=== PATIENT | male | born 1950 | race Caucasian/White ===

== ENCOUNTER 2017-02-25 17:59 | Inpatient (IN) | payer MEDICARE ==
[~2017-02-25] VITALS: Ht 175.3 cm; Wt 149.1 kg
[~2017-02-25 17:59] MED LIST: ALL220TA PO; ALLO300 PO; ASPI325T PO; ATEN1TAB74 PO; CYCL-36 PO; DICL25 PO; FEXO180 PO; FURO10S PO; GABA300 PO; LEVO100T60 PO; MS C30TA5 PO; POTA-243 PO; PRIN20TA2 PO; REST30CA PO
[2017-02-25 18:06] VITALS: BP 150/96; PULSE 78; RESP 17; TEMP 97.8; O2SAT 98
[2017-02-25] MEDS ORDERED: OXYC-395 PO (18:32)
[2017-02-25] MEDS ORDERED: POTA10TA2 PO (18:32)
[2017-02-25] MEDS ORDERED: ALPR1TAB3 PO (18:32)
[2017-02-25] MEDS ORDERED: COUM5TAB PO (18:32)
[2017-02-25] MEDS ORDERED: FLUT50SP EACH NARE (18:32)
[2017-02-25] MEDS ORDERED: FURO1TAB61 PO (18:32)
[2017-02-25] MEDS ORDERED: TRAZ100T10 PO (18:32)
[2017-02-25] MEDS ORDERED: LEVO.1 PO (18:32)
[2017-02-25] MEDS ORDERED: PANT40TA3 PO (18:32)
[2017-02-25] MEDS ORDERED: DONE10TA7 PO (18:32)
[2017-02-25] MEDS ORDERED: ZOLO25TA PO (18:32)
[2017-02-25] MEDS ORDERED: MORP1TAB26 PO (18:32)
[2017-02-25] MEDS ORDERED: MEMA1TAB2 PO (18:32)
--- NOTE | 2017-02-25 18:46 | PD ---
HPI Chief Complaint: Fall Time Seen by Provider: 18:39 Travel History International Travel<30 days: No Contact w/Intl Traveler<30days: No Traveled to known affect area: No History of Present Illness HPI Patient is a 66-year-old male transferring from [facility] after a mechanical fall this morning that subsequently resulted in fourth through eighth rib fractures. Patient was transferred here due to patient being on anticoagulants and it was felt that he was out of their scope of practice. Patient states that he was wearing his orthopedic shoe this morning which she does not normally wear was trying to get used to when he stepped off the curb tripping and falling onto concrete. Denies any head injury or loss of consciousness. He denied any chest pain or dizziness prior to the fall. PFSH Past Medical History Hx Anticoagulant Therapy: Yes (warfarin) Arthritis: Yes Anxiety: Yes Depression: Yes Heart Rhythm Problems: Yes (ATRIAL FIB) Cardiovascular Problems: Yes Congestive Heart Failure: Yes Dementia: Yes Diminished Hearing: Yes (hearing aids) Gastrointestinal Disorders: Yes Gout: Yes Hypertension: Yes Musculoskeletal: Yes Respiratory: Yes Sleep Apnea: Yes (C PAP) Thyroid Disease: Yes Tetanus Vaccination: < 5 Years Past Surgical History Joint Replacement: Yes (LEFT KNEE) Other Surgery: Yes Social History Alcohol Use: Yes (OCC VODKA) Tobacco Use: No Substance Use: No Allergies-Medications (Allergen,Severity, Reaction): Coded Allergies: codeine (Verified Adverse Reaction, Intermediate, headache, 02/25/17) Reported Meds & Prescriptions Reported Meds & Active Scripts Active Reported Memantine 10 Mg Tab 10 Mg PO DAILY Coumadin (Warfarin) 5 Mg Tab 5 Mg PO HS Alprazolam 1 Mg Tab 1 Mg PO Q6H PRN Potassium Chloride ER (Potassium Chloride) 10 Meq Tab 10 Meq PO DAILY Zoloft (Sertraline HCl) 25 Mg Tab 25 Mg PO DAILY Donepezil 10 Mg Tab 10 Mg PO HS Fluticasone Nasal Chicken 50 Mcg/Act Naspr 50 Mcg EACH NARE HS 50 mcg/spray Lasix (Furosemide) 80 Mg Tab 80 Mg PO BID Synthroid (Levothyroxine Sodium) 100 Mcg Tab 100 Mcg PO DAILY Pantoprazole (Pantoprazole Sodium) 40 Mg Tab 40 Mg PO DAILY Trazodone (Trazodone HCl) 100 Mg Tablet 100 Mg PO HS Morphine ER (Morphine Sulfate) 60 Mg Tab 60 Mg PO BID Oxycodone (Oxycodone HCl) 10 Mg Tab 10 Mg PO Q8HR Review of Systems Except as stated in HPI: all other systems reviewed are Neg General / Constitutional: No: Fever HENT: No: Headaches Cardiovascular: No: Chest Pain or Discomfort Respiratory: Positive: Pleuritic Pain, No: Shortness of Breath Gastrointestinal: No: Nausea, Abdominal Pain Musculoskeletal: Positive: Pain Neurologic: No: Weakness, Dizziness Physical Exam Narrative GENERAL: Obese, well-developed, alert male. Resting comfortably in no acute distress. SKIN: Warm and dry. HEAD: Atraumatic. Normocephalic. EYES: Pupils equal and round. No scleral icterus. No injection or drainage. ENT: No nasal bleeding or discharge. Mucous membranes pink and moist. NECK: Trachea midline. No JVD. CARDIOVASCULAR: Regular rate and rhythm. RESPIRATORY: No accessory muscle use. Clear to auscultation. Breath sounds equal bilaterally. GASTROINTESTINAL: Abdomen soft, non-tender, nondistended. Hepatic and splenic margins not palpable. MUSCULOSKELETAL: Extremities without clubbing, cyanosis, or edema. No obvious deformities. Tenderness to palpation of her left anterior lateral ribs, no crepitus noted, no ecchymosis noted. NEUROLOGICAL: Awake and alert. No obvious cranial nerve deficits. Motor grossly within normal limits. Five out of 5 muscle strength in the arms and legs. Normal speech. PSYCHIATRIC: Appropriate mood and affect; insight and judgment normal. Data Data Last Documented VS Vital Signs Date Time Temp Pulse Resp B/P (MAP) Pulse Ox O2 Delivery O2 Flow Rate FiO2 02/25/17 18:10 80 18 98 Room Air 02/25/17 18:06 97.8 150/96 (114) Orders Orders Morphine Inj (Morphine Inj) (02/25/17 19:00) Ondansetron Inj (Zofran Inj) (02/25/17 19:00) Admit Order (Ed Use Only) (02/25/17 18:58) MDM Medical Decision Making Medical Screen Exam Complete: Yes Emergency Medical Condition: Yes Medical Record Reviewed: Yes Interpretation(s) Vital Signs Date Time Temp Pulse Resp B/P (MAP) Pulse Ox O2 Delivery O2 Flow Rate FiO2 02/25/17 18:06 97.8 78 17 150/96 (114) 98 Differential Diagnosis Rib fracture versus intractable pain versus respiratory compromise versus metabolic abnormality versus other Narrative Course Patient was sent from [facility] to be admitted to trauma service after a mechanical fall resulted in for minimally to nondisplaced rib fractures on the left side from the fourth through eighth ribs. Medical records were reviewed, labs are ordered but there were none resulted are sent with patient. Patient's vital signs are stable. Dr. Higgins notified the patient was in the emergency department. Admit order placed. Basic labs and repeat chest x-ray ordered and pending. Diagnosis Primary Impression: Rib fractures Qualified Codes: S22.42XD - Multiple fractures of ribs, left side, subsequent encounter for fracture with routine healing Additional Impressions: Intractable pain Fall Qualified Codes: W19.XXXD - Unspecified fall, subsequent encounter Admitting Information Admitting Physician Requests: Admit Condition: Stable Lisandra Painting Feb 25, 2017 18:46
[2017-02-25] MEDS ORDERED: ONDANSETRON HCL 4 MG/2 ML VIAL IV PUSH ONE (19:00)
[2017-02-25] MEDS ORDERED: MORPHINE SULFATE 4 MG/ML INJ IV PUSH ONE (19:00)
[2017-02-25 19:05] VITALS: BP 151/86; PULSE 82; RESP 18; O2SAT 99
--- NOTE | 2017-02-25 19:12 | PD ---
Data Data Last Documented VS Vital Signs Date Time Temp Pulse Resp B/P (MAP) Pulse Ox O2 Delivery O2 Flow Rate FiO2 02/25/17 18:10 80 18 98 Room Air 02/25/17 18:06 97.8 150/96 (114) Orders Orders Morphine Inj (Morphine Inj) (02/25/17 19:00) Ondansetron Inj (Zofran Inj) (02/25/17 19:00) Admit Order (Ed Use Only) (02/25/17 18:58) MDM Supervised Visit with AGNIESZKA: Yes Narrative Course The history, exam, and medical decision-making in the associated mid-level provider note were completed with my assistance. I reviewed and agree with the findings presented. I attest that I had a [id number] encounter with the patient on the same day, and personally performed and documented my assessment and findings in the medical record. *My assessment and Findings: "Trauma transfer" for rib fractures. Patient on Coumadin. No labs available. Complaining of some pain now. Otherwise comfortable. No pneumothorax. We'll repeat chest x-ray here. Check labs were discussed with Dr. Higgins. Diagnosis Primary Impression: Rib fractures Qualified Codes: S22.42XD - Multiple fractures of ribs, left side, subsequent encounter for fracture with routine healing Additional Impressions: Intractable pain Fall Qualified Codes: W19.XXXD - Unspecified fall, subsequent encounter Condition: Sami Shultz MD Feb 25, 2017 19:12
--- NOTE | 2017-02-25 20:06 | RADRPT ---
EXAM DATE/TIME: 02/25/2017 19:28 [facility] COMPARISON: No previous studies available for comparison. EXTERNAL COMPARISON : [facility] INDICATIONS : Left sided pain and shortness of breath after fall. MEDICAL HISTORY : None. SURGICAL HISTORY : None. ENCOUNTER: Initial ACUITY: 1 day PAIN SCORE: 10/10 LOCATION: Left chest and posterior ribs. FINDINGS: The heart size is enlarged. The lungs are clear. No effusion is seen. CONCLUSION: Cardiomegaly. Henrique Rodgers MD on February 25, 2017 at 19:57 Board Certified Radiologist. This report was verified electronically.
[2017-02-25 20:29] LABS: AUTOMATED NEUTROPHIL # 7.1 TH/MM3 (1.8-7.7); BASOPHIL % 0.2 % (0.0-2.0); EOSINOPHIL % 0.3 % (0.0-4.0); HEMATOCRIT 41.9 % (39.0-51.0); HEMO FLAGS DIFF FINAL; LYMPH % 9.9 % (9.0-44.0); LYMPHOCYTE # 0.9 TH/MM3 (1.0-4.8); MEAN CELL VOLUME 88.2 FL (80.0-100.0); MEAN CORPUSCULAR HEMOGLOBIN 29.1 PG (27.0-34.0); MONO % 7.9 % (0.0-8.0); NEUT % 81.7 % (16.0-70.0); PLATELET COUNT 178 TH/MM3 (150-450); RED BLOOD COUNT 4.74 MIL/MM3 (4.50-5.90); RED CELL DISTRIBUTION WIDTH 13.8 % (11.6-17.2); WHITE BLOOD COUNT 8.6 TH/MM3 (4.0-11.0)
[2017-02-25 20:33] LABS: APTT (PATIENT) 37.7 SEC (24.3-30.1); INTERNATIONAL NORMALIZED RATIO 2.5 RATIO; PROTHROMBIN TIME - PATIENT 24.8 SEC (9.8-11.6)
[2017-02-25 20:39] LABS: BICARBONATE 29.2 MEQ/L (21.0-32.0); POTASSIUM 4.1 MEQ/L (3.5-5.1)
[2017-02-25] MEDS ORDERED: ACETAMINOPHEN/HYDROcodone 325 MG/5 MG TAB PO PRN ×2 (22:00)
[2017-02-25] MEDS ORDERED: ONDANSETRON HCL 4 MG/2 ML VIAL IV PUSH PRN (22:00)
[2017-02-25] MEDS ORDERED: SODIUM CHLORIDE 0.9% FLUSH 10 ML FLUSH IV FLUSH PRN (22:00)
[2017-02-25] MEDS ORDERED: MAGNESIUM HYDROXIDE SUSP 30 ML CUP PO PRN (22:00)
[2017-02-25] MEDS ORDERED: PANTOPRAZOLE SODIUM 40 MG VIAL IVP SCH (22:00)
[2017-02-25] MEDS ORDERED: ENALAPRILAT 1.25 MG/ML VIAL IV PUSH PRN (22:00)
[2017-02-25] MEDS ORDERED: HYDROmorphone HCL 2 MG TAB PO PRN (22:30)
[2017-02-25 23:09] VITALS: BP 149/70; PULSE 82; RESP 18; O2SAT 98
[2017-02-25] MEDS: MORPHINE SULFATE 2 MG/ML INJ IV PUSH PRN (23:10)
[2017-02-26] VITALS (7 sets, daily range): BP systolic 129–141; BP diastolic 71–89; PULSE 75–97; RESP 18–24; TEMP 97.8–99.5; O2SAT 96–98
[2017-02-26] MEDS: MORPHINE SULFATE 2 MG/ML INJ IV PUSH PRN ×2 (03:32→08:25)
--- NOTE | 2017-02-26 05:13 | MH ---
cc: ZULAY GARDUNO DATE OF ADMISSION: 02/25/2017 DATE OF 1950 DATE OF EVALUATION 02/25/2017 HISTORY This is 66-year-old male who was walking and tripped on a curb, fell onto his left side. He was evaluated by outside hospital, found to have rib fractures and request was made for transfer to [place] for management. The patient complains of left-sided chest pain with pain on inspiration. No abdominal pain. No paresthesias. No headaches. He denies loss of consciousness. PAST MEDICAL HISTORY The patient has a medical history significant for - 1. CHF. 2. Atrial fibrillation. 3. Anxiety. 4. Depression. 5. Hypertension. 6. Obstructive sleep apnea PAST SURGICAL HISTORY Knee surgery. Ankle surgery. SOCIAL HISTORY He drinks alcohol rarely. He does not smoke. ALLERGIES CODEINE. MEDICATIONS Can be obtained from medical records. PHYSICAL EXAMINATION GENERAL: On exam he is laying on the bed in no acute distress. Obese. EYES: His pupils are equal and reactive. NECK: Nontender. LUNGS: Respirations clear. CHEST: He has left-sided chest tenderness. No crepitus. ABDOMEN: Nontender. EXTREMITIES: No deformities. The patient does have a venous stasis changes in his lower extremities. LABORATORY DATA The patient's hemoglobin is 14, hematocrit is 42. Electrolytes within normal limits. ASSESSMENT This is a patient status post fall with multiple rib fractures on anticoagulation. The patient is being admitted. PLAN 1. We will monitor his respiratory status. 2. Repeat chest x-ray in a.m. 3. We will provide pain management. MD PERNELL Gutierrez/SSB /10:12 PM /4:58 AM
[2017-02-26 05:48] LABS: APTT (PATIENT) 39.4 SEC (24.3-30.1)
[2017-02-26 05:57] LABS: AUTOMATED NEUTROPHIL # 6.3 TH/MM3 (1.8-7.7); BASOPHIL % 0.4 % (0.0-2.0); EOSINOPHIL # 0.1 TH/MM3 (0-0.4); EOSINOPHIL % 0.7 % (0.0-4.0); HEMATOCRIT 38.4 % (39.0-51.0); HEMO FLAGS DIFF FINAL; LYMPH % 12.9 % (9.0-44.0); LYMPHOCYTE # 1.1 TH/MM3 (1.0-4.8); MEAN CELL VOLUME 89.1 FL (80.0-100.0); MEAN CORPUSCULAR HEMOGLOBIN 29.4 PG (27.0-34.0); MONO % 10.8 % (0.0-8.0); NEUT % 75.2 % (16.0-70.0); PLATELET COUNT 153 TH/MM3 (150-450); RED BLOOD COUNT 4.31 MIL/MM3 (4.50-5.90); RED CELL DISTRIBUTION WIDTH 13.6 % (11.6-17.2); WHITE BLOOD COUNT 8.3 TH/MM3 (4.0-11.0)
[2017-02-26] MEDS: LEVOTHYROXINE SODIUM 100 MCG TAB PO SCH (06:02)
[2017-02-26 06:08] LABS: ALKALINE PHOSPHATASE 101 U/L (45-117); TOTAL BILIRUBIN ADULT 0.7 MG/DL (0.2-1.0)
[2017-02-26 06:11] LABS: ALT (GPT) 25 U/L (12-78); ANION GAP 6 MEQ/L (5-15); AST (GOT) 27 U/L (15-37); BICARBONATE 26.5 MEQ/L (21.0-32.0); BLOOD UREA NITROGEN 14 MG/DL (7-18); CHLORIDE 107 MEQ/L (98-107); GLOMERULAR FILTRATION RATE 114 ML/MIN (>89); POTASSIUM 4.2 MEQ/L (3.5-5.1); SODIUM (NA) 139 MEQ/L (136-145)
--- NOTE | 2017-02-26 06:49 | RADRPT ---
EXAM DATE/TIME: 02/26/2017 05:43 [facility] COMPARISON: CHEST PA & LAT, February 25, 2017, 19:28. INDICATIONS : Short of breath. MEDICAL HISTORY : None. SURGICAL HISTORY : None. ENCOUNTER: Subsequent ACUITY: 1 day PAIN SCORE: 0/10 LOCATION: Bilateral chest FINDINGS: There is fracturing of the left fifth, sixth and seventh ribs. The heart size is enlarged. The lungs are grossly clear. CONCLUSION: Left fifth, sixth and seventh rib fractures. Henrique Rodgers MD on February 26, 2017 at 6:45 Board Certified Radiologist. This report was verified electronically.
[2017-02-26] MEDS ORDERED: LACTULOSE SYRUP 20 GM/30 ML CUP PO PRN (08:00)
[2017-02-26] MEDS: MEMANTINE HCL 10 MG TAB PO SCH (08:24)
[2017-02-26] MEDS: SERTRALINE HCL 50 MG TAB PO SCH (08:24)
[2017-02-26] MEDS: FUROSEMIDE 80 MG TAB PO SCH ×2 (08:24→20:18)
[2017-02-26] MEDS: DOCUSATE SODIUM 50 MG/SENNA 8.6 MG TAB PO SCH ×2 (08:24→20:18)
[2017-02-26] MEDS: LIDOCAINE HCL 5% PATCH T-DERMAL SCH (08:26)
[2017-02-26] MEDS ORDERED: DOCUSATE SODIUM 100 MG CAP PO SCH (09:00)
[2017-02-26] MEDS: POLYETHYLENE GLYCOL 17 GM PKG PO SCH (09:00)
[2017-02-26] MEDS: METHOCARBAMOL 500 MG TAB PO SCH ×2 (11:00→19:55)
[2017-02-26] MEDS ORDERED: MORPHINE SULFATE 2 MG/ML INJ IV PUSH ONE (12:15)
--- NOTE | 2017-02-26 12:20 | HHI.PR ---
Subjective Subjective Notes Complains of left rib pain Has not been OOB yet Objective Vitals/I&O Vital Signs Date Time Temp Pulse Resp B/P (MAP) Pulse Ox O2 Delivery O2 Flow Rate FiO2 02/26/17 08:30 16 02/26/17 08:04 98.4 86 140/89 (106) 97 02/25/17 23:09 Room Air Labs Laboratory Tests Test 02/25/17 19:57 02/26/17 04:22 White Blood Count 8.6 8.3 Red Blood Count 4.74 4.31 Hemoglobin 13.8 12.6 Hematocrit 41.9 38.4 Mean Corpuscular Volume 88.2 89.1 Mean Corpuscular Hemoglobin 29.1 29.4 Mean Corpuscular Hemoglobin Concent 33.0 33.0 Red Cell Distribution Width 13.8 13.6 Platelet Count 178 153 Mean Platelet Volume 8.6 8.9 Neutrophils (%) (Auto) 81.7 75.2 Lymphocytes (%) (Auto) 9.9 12.9 Monocytes (%) (Auto) 7.9 10.8 Eosinophils (%) (Auto) 0.3 0.7 Basophils (%) (Auto) 0.2 0.4 Neutrophils # (Auto) 7.1 6.3 Lymphocytes # (Auto) 0.9 1.1 Monocytes # (Auto) 0.7 0.9 Eosinophils # (Auto) 0.0 0.1 Basophils # (Auto) 0.0 0.0 CBC Comment DIFF FINAL DIFF FINAL Differential Comment Prothrombin Time 24.8 Prothromb Time International Ratio 2.5 Activated Partial Thromboplast Time 37.7 39.4 Blood Urea Nitrogen 14 14 Creatinine 0.78 0.69 Random Glucose 111 100 Calcium Level 8.6 8.2 Sodium Level 141 139 Potassium Level 4.1 4.2 Chloride Level 103 107 Carbon Dioxide Level 29.2 26.5 Anion Gap 9 6 Estimat Glomerular Filtration Rate 99 114 Total Protein 5.9 Albumin 3.0 Alkaline Phosphatase 101 Aspartate Amino Transf (AST/SGOT) 27 Alanine Aminotransferase (ALT/SGPT) 25 Total Bilirubin 0.7 Radiology Last Impressions Chest X-Ray 02/26/17 0000 Signed Impressions: Service Date/Time: Sunday, February 26, 2017 05:43 - CONCLUSION: Left fifth, sixth and seventh rib fractures. Henrique Rodgers MD Narrative Exam GENERAL: 66-year-old obese male lying in bed in no acute distress. SKIN: Warm and dry. HEAD: Atraumatic. Normocephalic. EYES: PERRL. ENT: No nasal bleeding or discharge. Mucous membranes pink and moist. NECK: Trachea midline. No JVD. CARDIOVASCULAR: Regular rate and rhythm. RESPIRATORY: No accessory muscle use. Lungs clear and diminished to auscultation. Breath sounds equal bilaterally. Left lateral ribs tender to palpation. GASTROINTESTINAL: Abdomen soft, non-tender, nondistended. + BS. MUSCULOSKELETAL: Extremities without cyanosis, or edema. MAEW, + perfused NEUROLOGICAL: Awake and alert. Normal speech. A/P Assessment and Plan [place]: Fall from the standing position. No LOC. On Coumadin for Afib. Transferred from [facility] for Trauma services. INJURIES: LEFT rib fxs (4-7) LEFT pulmonary contusion PMHx: Afib on Coumadin, Arthritis, Anxiety, depression, CHF, dementia, gout, HTN , sleep apnea, thyroid dx Diet: Regular Pulm: IS Pain: Robaxin, Lidoderm patch, Added home dose of Morphine ER, and oxycodone 10mg q4H, IV Ofirmev x 24 hours Activity: OOB. PT ordered GI: PO Protonix Bowel:Isabel-colace, Miralax, PRN Lactulose. LBM 0 DVT: SCDs LEFT rib fxs, LEFT pulmonary contusion Supportive care Pain control Pulmonary toileting OOB-PT and OT ordered CXR today shows no pneumothorax Sleep apnea Continue home CPAP Fall, Afib hx Cardiology consulted, patient sees Dr Jain INR 2.5 on admission Hold Coumadin until INR 1.8 INR in AM US carotids- R/O stenosis Plan of care discussed with patient and RN at bedside. Case management consulted to assist with discharge planning. Juany Boudreaux Feb 26, 2017 12:20
[2017-02-26] MEDS: ACETAMINOPHEN 1000 MG/100 ML 100 ML IV SCH ×2 (13:00→19:56)
[2017-02-26] MEDS: RESP: ALBUTEROL 2.5 MG/IPRATROPIUM 0.5 MG NEB (SCH) NEB ×2 (15:37→20:34)
[2017-02-26] MEDS: DONEPEZIL HCL 5 MG TAB PO SCH (20:17)
[2017-02-26] MEDS: REMOVE OLD LIDOCAINE PATCH T-DERMAL SCH (20:35)
--- NOTE | 2017-02-26 22:34 | RADRPT ---
EXAM DATE/TIME: 02/26/2017 18:27 [facility] COMPARISON: No previous studies available for comparison. INDICATIONS : Status post fall. MEDICAL HISTORY : Dementia. Congestive heart failure. Arthritis. Thyroid disease. Afib. HTN. Sleep apnea. Gout. Depress ion. Anxiety. Anticoagulant therapy, Warfarin. SURGICAL HISTORY : Total knee replacement, left. Left ankle fusion. Blood transfusions. ENCOUNTER: Initial ACUITY: 1 day PAIN SCORE: 3/10 LOCATION: Bilateral neck PEAK SYSTOLIC VELOCITIES (cm/sec): ICA/CCA RATIO: Right: 1.0 Left: 0.7 ICA: Right: 77.0 Left: 56.8 CCA: Right: 78.6 Left: 80.6 ECA: Right: 94.3 Left: 96.8 VERTEBRAL: Right: 45.2 antegrade Left: 47.1 antegrade Elevated flow velocities and ICA/CCA ratios have been found to correlate with increased degrees of vessel stenosis, calculated as percentage of diameter relative to a normal segment of distal ICA/CCA FINDINGS: RIGHT CAROTID: No significant stenosis is visualized. The waveforms are within normal limits. LEFT CAROTID: No significant stenosis is visualized. The waveforms are within normal limits. VERTEBRAL ARTERIES: Antegrade flow is seen in both vertebral arteries. CONCLUSION: Normal hemodynamic profile both carotids. Daniel Sen MD on February 26, 2017 at 22:31 Board Certified Radiologist. This report was verified electronically.
[2017-02-27] VITALS: BP 121/68; PULSE 84; RESP 24; TEMP 98; O2SAT 95
[2017-02-27] MEDS: METHOCARBAMOL 500 MG TAB PO SCH ×3 (01:50→22:31)
[2017-02-27] MEDS: ACETAMINOPHEN 1000 MG/100 ML 100 ML IV SCH ×2 (01:51→06:26)
[2017-02-27 04:00] VITALS: BP 142/92; PULSE 64; RESP 22; TEMP 98; O2SAT 96
[2017-02-27 04:42] LABS: BASOPHIL % 0.2 % (0.0-2.0); EOSINOPHIL % 0.2 % (0.0-4.0); HEMATOCRIT 37.5 % (39.0-51.0); HEMO FLAGS DIFF FINAL; LYMPH % 12.5 % (9.0-44.0); LYMPHOCYTE # 1.1 TH/MM3 (1.0-4.8); MEAN CELL VOLUME 87.5 FL (80.0-100.0); MEAN CORPUSCULAR HEMOGLOBIN 29.6 PG (27.0-34.0); MEAN CORPUSCULAR HGB CONC 33.8 % (32.0-36.0); MONO % 11.6 % (0.0-8.0); NEUT % 75.5 % (16.0-70.0); PLATELET COUNT 163 TH/MM3 (150-450); RED BLOOD COUNT 4.29 MIL/MM3 (4.50-5.90); RED CELL DISTRIBUTION WIDTH 13.9 % (11.6-17.2); WHITE BLOOD COUNT 9.2 TH/MM3 (4.0-11.0)
[2017-02-27 04:53] LABS: PROTHROMBIN TIME - PATIENT 20.5 SEC (9.8-11.6)
[2017-02-27 05:11] LABS: BICARBONATE 30.2 MEQ/L (21.0-32.0); POTASSIUM 3.5 MEQ/L (3.5-5.1)
[2017-02-27] MEDS: LEVOTHYROXINE SODIUM 100 MCG TAB PO SCH (06:25)
[2017-02-27 08:00] VITALS: BP 109/59; PULSE 71; RESP 18; TEMP 97.6; O2SAT 95
[2017-02-27] MEDS: RESP: ALBUTEROL 2.5 MG/IPRATROPIUM 0.5 MG NEB (SCH) NEB ×4 (08:29→19:35)
--- NOTE | 2017-02-27 09:53 | MB ---
cc: MAUREEN PEREZ MD DATE OF CONSULTATION 02/27/2017 HISTORY OF PRESENT ILLNESS This is a 66-year-old gentleman who had a fall with fracture of his fourth through eighth ribs on his left side. We have been asked to see him in that he does have a history of atrial fibrillation. No syncope or chest pain has been present. He has had no palpitations, lightheadedness or dizziness and otherwise has felt well. He was transferred here apparently to initiate pain management. No shortness of breath or angina has been present. He does obviously have significant pain on inspiration. MEDICATIONS AT HOME 1. Warfarin 5 mg daily. 2. Pantoprazole 40 mg daily. 3. Levothyroxine 100 mcg daily. 4. Lasix 80 mg twice daily. 5. Benazepril 10 daily. 6. Zoloft 25 daily. 7. Potassium 10 mEq daily. 8. Alprazolam on a p.r.n. basis. ALLERGIES CODEINE which gives him headaches. PHYSICAL EXAMINATION GENERAL: On physical exam he is awake and alert. He is in no acute distress. VITAL SIGNS: His blood pressures is 140/92, pulse is 70-80 and irregular. There is no neck vein distension. NECK: Carotids are normal. LUNGS: Clear. CARDIOVASCULAR: Exam reveals an irregularly irregular rhythm. There is no significant murmur or gallop noted. ABDOMEN: Soft. There is no tenderness or organomegaly. ASSESSMENT AND PLAN The patient is stable from a cardiovascular standpoint. If surgery is not planned and does not appear to be, he should continue his warfarin for thromboembolic protection. I have reordered this. At this point in time he is stable from a cardiovascular standpoint and we will be happy to see him back as needed. Otherwise we will see on a p.r.n. basis. Please call if necessary. MD EDILIA Guillen/[place] /7:29 AM /9:43 AM
[2017-02-27] MEDS: DOCUSATE SODIUM 50 MG/SENNA 8.6 MG TAB PO SCH ×2 (10:30→20:14)
[2017-02-27] MEDS: FUROSEMIDE 80 MG TAB PO SCH ×2 (10:30→20:11)
[2017-02-27] MEDS: SERTRALINE HCL 50 MG TAB PO SCH (10:30)
[2017-02-27] MEDS: POLYETHYLENE GLYCOL 17 GM PKG PO SCH (10:31)
[2017-02-27] MEDS: MEMANTINE HCL 10 MG TAB PO SCH (10:31)
[2017-02-27] MEDS: LIDOCAINE HCL 5% PATCH T-DERMAL SCH (10:31)
[2017-02-27 11:48] VITALS: BP 136/81; PULSE 90; RESP 18; TEMP 99.1; O2SAT 97
--- NOTE | 2017-02-27 12:46 | HHI.PR ---
Subjective Subjective Notes Complains of left shoulder pain Got OOB yesterday with PT Objective Vitals/I&O Vital Signs Date Time Temp Pulse Resp B/P (MAP) Pulse Ox O2 Delivery O2 Flow Rate FiO2 02/27/17 11:48 99.1 90 18 136/81 (99) 97 02/25/17 23:09 Room Air Labs Laboratory Tests Test 02/27/17 03:53 White Blood Count 9.2 Red Blood Count 4.29 Hemoglobin 12.7 Hematocrit 37.5 Mean Corpuscular Volume 87.5 Mean Corpuscular Hemoglobin 29.6 Mean Corpuscular Hemoglobin Concent 33.8 Red Cell Distribution Width 13.9 Platelet Count 163 Mean Platelet Volume 8.7 Neutrophils (%) (Auto) 75.5 Lymphocytes (%) (Auto) 12.5 Monocytes (%) (Auto) 11.6 Eosinophils (%) (Auto) 0.2 Basophils (%) (Auto) 0.2 Neutrophils # (Auto) 7.0 Lymphocytes # (Auto) 1.1 Monocytes # (Auto) 1.1 Eosinophils # (Auto) 0.0 Basophils # (Auto) 0.0 CBC Comment DIFF FINAL Differential Comment Prothrombin Time 20.5 Prothromb Time International Ratio 2.0 Blood Urea Nitrogen 11 Creatinine 0.78 Random Glucose 103 Calcium Level 7.6 Sodium Level 140 Potassium Level 3.5 Chloride Level 103 Carbon Dioxide Level 30.2 Anion Gap 7 Estimat Glomerular Filtration Rate 99 Radiology Last Impressions Chest X-Ray 02/26/17 0000 Signed Impressions: Service Date/Time: Sunday, February 26, 2017 05:43 - CONCLUSION: Left fifth, sixth and seventh rib fractures. Henrique Rodgers MD Narrative Exam GENERAL: 66-year-old obese male lying in bed in no acute distress. SKIN: Warm and dry. HEAD: Normocephalic. CARDIOVASCULAR: Regular rate and rhythm. RESPIRATORY: No accessory muscle use. Lungs clear and diminished to auscultation. Breath sounds equal bilaterally. GASTROINTESTINAL: Abdomen soft, non-tender, nondistended. + BS. MUSCULOSKELETAL: Extremities without cyanosis, or edema. MAEW, + perfused. Limited ROM LUE. NEUROLOGICAL: Awake and alert. Normal speech. A/P Assessment and Plan [place]: Fall from the standing position. No LOC. On Coumadin for Afib. Transferred from [facility] for Trauma services. INJURIES: LEFT rib fxs (4-7) LEFT pulmonary contusion PMHx: Afib on Coumadin, Arthritis, Anxiety, depression, CHF, dementia, gout, HTN , sleep apnea, thyroid dx Diet: Regular Pulm: IS Pain: Lidoderm patch, Morphine ER, oxycodone, added Fentanyl patch and increased Robaxin dose Activity: OOB. PT ordered GI: PO Protonix Bowel:Isabel-colace, Miralax, PRN Lactulose. LBM 0 DVT: SCDs LEFT rib fxs, LEFT pulmonary contusion Supportive care Pain control Pulmonary toileting OOB-PT and OT ordered CXR in AM Sleep apnea Continue home CPAP Fall, Afib hx Cardiology consulted, patient sees Dr Jain Resumed home Coumadin dose INR 2.5 on admission INR in AM US carotids- negative for stenosis LEFT shoulder pain Xray- R/O fx Plan of care discussed with patient and RN at bedside. Case management consulted to assist with discharge planning. Plan DC in 1-2 days when pain better controlled. Juany Boudreaux Feb 27, 2017 12:46
[2017-02-27] MEDS ORDERED: METHOCARBAMOL 500 MG TAB PO SCH (14:00)
[2017-02-27] MEDS ORDERED: PILL SPLITTER OTHER PRN (15:00)
[2017-02-27] MEDS ORDERED: fentaNYL 50 MCG/HR PATCH T-DERMAL SCH (15:00)
[2017-02-27] MEDS ORDERED: REMOVE OLD DURAGESIC (FENTANYL) PATCH T-DERMAL SCH (15:00)
[2017-02-27] MEDS: WARFARIN SOD 5 MG TAB PO SCH (15:03)
[2017-02-27] MEDS: MORPHINE SULFATE 60 MG CONTROLLED RELEASE TAB PO SCH ×2 (15:10→20:14)
--- NOTE | 2017-02-27 15:53 | RADRPT ---
EXAM DATE/TIME: 02/27/2017 15:40 [facility] COMPARISON: No previous studies available for comparison. INDICATIONS : Left shoulder pain after fall. MEDICAL HISTORY : None. SURGICAL HISTORY : None. ENCOUNTER: Initial ACUITY: 2 days PAIN SCORE: 10/10 LOCATION: Left shoulder. FINDINGS: Two view examination of the left shoulder demonstrates no evidence of fracture or dislocation. There are fractures of the left sixth and seventh ribs. No visible pneumothorax. There is hypertrophy of t he acromioclavicular joint, chronic. The glenohumeral and acromioclavicular joints are maintained. B virginie mineralization is normal. CONCLUSION: Unremarkable limited examination of the left shoulder however there are least 2 left-sided rib fractu res. Sami Mohan MD on February 27, 2017 at 15:50 Board Certified Radiologist. This report was verified electronically.
[2017-02-27 16:00] VITALS: BP 139/90; PULSE 98; RESP 18; TEMP 99.3; O2SAT 96
[2017-02-27] MEDS: MORPHINE SULFATE 2 MG/ML INJ IV PRN (17:29)
[2017-02-27 20:00] VITALS: BP 147/90; PULSE 99; RESP 24; TEMP 99.3; O2SAT 95
[2017-02-27] MEDS: REMOVE OLD LIDOCAINE PATCH T-DERMAL SCH (20:12)
[2017-02-27] MEDS: traZODone HCL 100 MG TAB PO SCH (20:12)
[2017-02-27] MEDS: DONEPEZIL HCL 5 MG TAB PO SCH (20:13)
[2017-02-27] MEDS ORDERED: MAGN30S PO (20:14)
[2017-02-27] MEDS ORDERED: PERI PO (20:14)
[2017-02-27] MEDS: LACTULOSE SYRUP 20 GM/30 ML CUP PO SCH (20:30)
[2017-02-27] MEDS ORDERED: NON-FORMULARY DRUG (Trazodone 100 MG) PO SCH (21:00)
[2017-02-27] MEDS: MAGNESIUM HYDROXIDE SUSP 30 ML CUP PO SCH (21:00)
[2017-02-28] VITALS (7 sets, daily range): BP systolic 104–154; BP diastolic 79–94; PULSE 88–132; RESP 17–24; TEMP 98.3–101.8; O2SAT 90–95
[2017-02-28] MEDS: MORPHINE SULFATE 2 MG/ML INJ IV PRN ×4 (01:31→21:03)
[2017-02-28 05:55] LABS: INTERNATIONAL NORMALIZED RATIO 1.5 RATIO; PROTHROMBIN TIME - PATIENT 15.1 SEC (9.8-11.6)
--- NOTE | 2017-02-28 06:02 | RADRPT ---
EXAM DATE/TIME: 02/28/2017 05:04 [facility] COMPARISON: CHEST SINGLE AP, February 26, 2017, 5:43. INDICATIONS : Shortness of breath. MEDICAL HISTORY : None. SURGICAL HISTORY : None. ENCOUNTER: Subsequent ACUITY: 4 - 6 days PAIN SCORE: Non-responsive. LOCATION: Bilateral chest FINDINGS: The heart size is enlarged. The lungs are grossly clear. Left rib fractures are seen. CONCLUSION: Left rib fractures. Henrique Rodgers MD on February 28, 2017 at 6:00 Board Certified Radiologist. This report was verified electronically.
[2017-02-28 06:09] LABS: BICARBONATE 31.3 MEQ/L (21.0-32.0); POTASSIUM 3.7 MEQ/L (3.5-5.1)
--- NOTE | 2017-02-28 06:32 | HHI.FF ---
Face to Face Verification Diagnosis: (1) Rib fractures (2) Fall (3) Intractable pain Physical Therapy Order: Evaluate and Treat, Improve ambulation, Strength and gait training Home Health Nursing Order: Medical education Signs/symptoms of disease process Medication education-adverse effect Nursing assessment with vital signs I have seen patient Ryder Snyder on 02/28/17. My clinical findings support the need for the requested home health care services because: Ltd mobility - disease progression Deconditioned w/ increased weakness Limited ability to care for self High risk of falls I certify that my clinical findings support that this patient is homebound because: Post-op weakness Unsteady gait/balance Unsafe to leave home unassisted [id number] bed/chair Unable to use public transportation Josephine Menjivar Feb 28, 2017 06:32
[2017-02-28] MEDS: LEVOTHYROXINE SODIUM 100 MCG TAB PO SCH (06:57)
[2017-02-28] MEDS: METHOCARBAMOL 500 MG TAB PO SCH ×3 (06:57→21:02)
[2017-02-28] MEDS: RESP: ALBUTEROL 2.5 MG/IPRATROPIUM 0.5 MG NEB (SCH) NEB ×4 (07:40→20:00)
[2017-02-28] MEDS: MORPHINE SULFATE 60 MG CONTROLLED RELEASE TAB PO SCH ×2 (08:58→19:48)
[2017-02-28] MEDS: POTASSIUM CHLORIDE 10 MEQ CONTROLLED RELEASE TAB PO SCH (08:59)
[2017-02-28] MEDS: FUROSEMIDE 80 MG TAB PO SCH ×2 (09:00→19:49)
[2017-02-28] MEDS: POLYETHYLENE GLYCOL 17 GM PKG PO SCH ×2 (09:00→11:31)
[2017-02-28] MEDS: MEMANTINE HCL 10 MG TAB PO SCH (09:00)
[2017-02-28] MEDS: DOCUSATE SODIUM 50 MG/SENNA 8.6 MG TAB PO SCH ×2 (09:00→19:47)
[2017-02-28] MEDS: LACTULOSE SYRUP 20 GM/30 ML CUP PO SCH (09:01)
[2017-02-28] MEDS: SERTRALINE HCL 50 MG TAB PO SCH (09:01)
[2017-02-28] MEDS: MAGNESIUM HYDROXIDE SUSP 30 ML CUP PO SCH ×2 (09:02→19:49)
[2017-02-28] MEDS: LIDOCAINE HCL 5% PATCH T-DERMAL SCH (09:02)
--- NOTE | 2017-02-28 12:48 | HHI.PR ---
Subjective Subjective Notes PTD: 3 Pt lying in bed. Eyes closed. Moaning and grimacing/groaning through gritted teeth. Patient states his pain is 15/10. "It's up there." "I have broken ribs. It's so bad." "My is in a wheelchair." Objective Vitals/I&O Vital Signs Date Time Temp Pulse Resp B/P (MAP) Pulse Ox O2 Delivery O2 Flow Rate FiO2 02/28/17 12:00 99.6 132 17 142/87 (105) 93 02/25/17 23:09 Room Air Labs Laboratory Tests Test 02/28/17 05:24 Prothrombin Time 15.1 Prothromb Time International Ratio 1.5 Blood Urea Nitrogen 15 Creatinine 0.76 Random Glucose 107 Calcium Level 8.0 Sodium Level 139 Potassium Level 3.7 Chloride Level 103 Carbon Dioxide Level 31.3 Anion Gap 5 Estimat Glomerular Filtration Rate 102 Radiology Last 72 hours Impressions Chest X-Ray 02/28/17 0600 Signed Impressions: Service Date/Time: Tuesday, February 28, 2017 05:04 - CONCLUSION: Left rib fractures. Henrique Rodgers MD Shoulder X-Ray 02/27/17 0000 Signed Impressions: Service Date/Time: Monday, February 27, 2017 15:40 - CONCLUSION: Unremarkable limited examination of the left shoulder however there are least 2 left-sided rib fractures. Sami Mohan MD Chest X-Ray 02/26/17 0000 Signed Impressions: Service Date/Time: Sunday, February 26, 2017 05:43 - CONCLUSION: Left fifth, sixth and seventh rib fractures. Henrique Rodgers MD Carotid Artery Ultrasound 02/26/17 0000 Signed Impressions: Service Date/Time: Sunday, February 26, 2017 18:27 - CONCLUSION: Normal hemodynamic profile both carotids. Daniel Sen MD Narrative Exam GENERAL: This is a 66-year-old male lying in bed. Extremely painful. Moaning. SKIN: Warm and dry. HEAD: Atraumatic. Normocephalic. EYES: PERRLA ENT: No nasal bleeding or discharge. Mucous membranes pink and moist. NECK: Trachea midline. No JVD. CARDIOVASCULAR: Regular rate and rhythm. RESPIRATORY: No accessory muscle use. Lungs are clear to auscultation. Breath sounds equal bilaterally. No distress or dyspnea. GASTROINTESTINAL: BS + x 4 quads. Abdomen obese, soft, non-tender, nondistended. MUSCULOSKELETAL: Extremities without cyanosis, or edema. + peripheral pulses x 4 extremities. Warm with good capillary refill and sensation. MAEW. NEUROLOGICAL: Awake and alert. Normal speech and pattern. A/P Problem List: (1) Rib fractures ICD Codes: S22.39XA - Fracture of one rib, unspecified side, initial encounter for closed fracture Status: Acute (2) Fall ICD Codes: W19.XXXA - Unspecified fall, initial encounter Status: Acute (3) Intractable pain ICD Codes: R52 - Pain, unspecified Status: Acute Assessment and Plan [place]: This is a 66-year-old female who sustained a fall. He fell from the standing position, while wearing new orthopedic shoes. No LOC. He is on Coumadin for A. fib. Transfer from [facility] for trauma services. INJURIES: LEFT rib fxs (4-7) LEFT pulmonary contusion PMHx: Chronic pain. Afib on Coumadin, Arthritis, Anxiety, depression, CHF, dementia, gout, HTN, sleep apnea, thyroid dx Procedures: Consults: Cardiology. Case management. Diet: Regular heart healthy diet. Tolerating po diet. Encourage good po intake with each meal. Pulmonary: Encourage good pulmonary toileting. IS and acapella at bedside and pt encouraged to use. Rationale for use explained to patient, and verbalized understanding. EZ pap w/ nebs. A.m. chest x-ray is stable. F/u labs and CXR in am. PAIN Management: Morphine ER 60mg (home med), Oxycodone 10mg q 4h (home med), Robaxin 750mg q 8h, Lidoderm patch, PRN IV Morphine, Fentanyl patch increased to 75mcg . Added OFIRMEV q 6h for 24 hrs. Added Toradol 15 mg q 6 h for pain control. Pt very difficult to manage as he has chronic pain and is on narcotics daily at home. Anxiety: Resumed home dose of Xanax 1 mg q 8h. Activity: OOB. PT ordered. GI prophylaxis: Protonix po Bowel regimen: Isabel-colace, MOM. Miralax. Lactulose. LBM: 0 DVT prophylaxis: Mechanical VTE with SCDs. Chemical management with Coumadin 5 mg QD. DC Planning: Case management consulted for assistance with final discharge disposition. PT recommends [facility]. [id number] completed. Patient will be able to discharge once pain is more controlled, plan for 1-2 days. Emotional support provided to patient and family at bedside and plan of care discussed. Discussed with RN at bedside. Discussed pt condition and plan of care with collaborating trauma surgeon. Patient is hemodynamically stable and being managed on the med/surg floor. The trauma team will round each day, and evaluate plan of care on a daily basis. LEFT rib fxs LEFT pulmonary contusion Supportive care O2 as needed Pain control - increased fentanyl patch Aggressive pulmonary toileting OOB PT and OT ordered CXR is stable F/u labs in the am Sleep apnea Continue home CPAP Fall, Afib hx Cardiology consulted, patient sees Dr Jain Resumed home Coumadin dose INR 2.5 on admission INR = 1.5 US carotids- negative for stenosis HR elevated - 130 - Afib - chronic, however patient just received albuterol treatment. Lopressor 25 mg q 8h for rate control. Pt is in chronic Afib, most likely elevated from pain and albuterol use. Monitor closely Home medications resumed LEFT shoulder pain Xray- negative for fracture Problem Qualifiers (1) Rib fractures: Qualified Codes: S22.42XD - Multiple fractures of ribs, left side, subsequent encounter for fracture with routine healing (2) Fall: Qualified Codes: W19.XXXD - Unspecified fall, subsequent encounter Josephine Menjivar Feb 28, 2017 12:48
[2017-02-28] MEDS ORDERED: METOPROLOL TARTRATE 25 MG TAB PO ONE (14:00)
[2017-02-28] MEDS ORDERED: REMOVE OLD DURAGESIC (FENTANYL) PATCH T-DERMAL SCH (14:59)
[2017-02-28] MEDS ORDERED: fentaNYL 75 MCG/HR PATCH T-DERMAL SCH (15:00)
[2017-02-28] MEDS: WARFARIN SOD 5 MG TAB PO SCH (16:06)
[2017-02-28] MEDS ORDERED: ALPRAZolam 1 MG TAB PO PRN (17:15)
[2017-02-28] MEDS: KETOROLAC TROMETHAMINE 30 MG/ML (IVP) VIAL IV PUSH SCH ×2 (18:12→23:39)
[2017-02-28] MEDS: ACETAMINOPHEN 1000 MG/100 ML 100 ML IV SCH ×2 (18:13→23:39)
[2017-02-28] MEDS: traZODone HCL 100 MG TAB PO SCH (19:47)
[2017-02-28] MEDS: DONEPEZIL HCL 5 MG TAB PO SCH (19:48)
[2017-02-28] MEDS: REMOVE OLD LIDOCAINE PATCH T-DERMAL SCH (19:49)
[2017-02-28] MEDS: METOPROLOL TARTRATE 25 MG TAB PO SCH (21:02)
[2017-03-01] VITALS (7 sets, daily range): BP systolic 96–120; BP diastolic 67–81; PULSE 45–86; RESP 16–22; TEMP 96.2–98.9; O2SAT 91–95
[2017-03-01] MEDS: KETOROLAC TROMETHAMINE 30 MG/ML (IVP) VIAL IV PUSH SCH ×3 (04:53→17:06)
[2017-03-01] MEDS: MORPHINE SULFATE 2 MG/ML INJ IV PRN (04:53)
[2017-03-01] MEDS: ACETAMINOPHEN 1000 MG/100 ML 100 ML IV SCH ×2 (04:53→11:32)
[2017-03-01] MEDS: LEVOTHYROXINE SODIUM 100 MCG TAB PO SCH (04:54)
[2017-03-01] MEDS: METOPROLOL TARTRATE 25 MG TAB PO SCH ×3 (04:54→21:40)
[2017-03-01] MEDS: METHOCARBAMOL 500 MG TAB PO SCH ×3 (04:54→21:39)
[2017-03-01 04:59] LABS: AUTOMATED NEUTROPHIL # 8.1 TH/MM3 (1.8-7.7); BASOPHIL % 0.3 % (0.0-2.0); EOSINOPHIL # 0.1 TH/MM3 (0-0.4); HEMATOCRIT 38.5 % (39.0-51.0); HEMO FLAGS DIFF FINAL; LYMPH % 12.5 % (9.0-44.0); LYMPHOCYTE # 1.4 TH/MM3 (1.0-4.8); MEAN CELL VOLUME 88.7 FL (80.0-100.0); MEAN CORPUSCULAR HEMOGLOBIN 29.8 PG (27.0-34.0); MEAN CORPUSCULAR HGB CONC 33.6 % (32.0-36.0); MONO % 14.6 % (0.0-8.0); NEUT % 71.6 % (16.0-70.0); PLATELET COUNT 185 TH/MM3 (150-450); RED BLOOD COUNT 4.34 MIL/MM3 (4.50-5.90); RED CELL DISTRIBUTION WIDTH 13.8 % (11.6-17.2); WHITE BLOOD COUNT 11.3 TH/MM3 (4.0-11.0)
[2017-03-01 05:23] LABS: ANION GAP 5 MEQ/L (5-15); AST (GOT) 21 U/L (15-37); BICARBONATE 30.9 MEQ/L (21.0-32.0); BLOOD UREA NITROGEN 19 MG/DL (7-18); CHLORIDE 100 MEQ/L (98-107); GLOMERULAR FILTRATION RATE 87 ML/MIN (>89); SODIUM (NA) 136 MEQ/L (136-145)
[2017-03-01 05:28] LABS: ALKALINE PHOSPHATASE 96 U/L (45-117); ALT (GPT) 19 U/L (12-78); TOTAL BILIRUBIN ADULT 1.3 MG/DL (0.2-1.0)
--- NOTE | 2017-03-01 06:41 | RADRPT ---
EXAM DATE/TIME: 03/01/2017 05:59 [facility] COMPARISON: CHEST SINGLE AP, February 28, 2017, 5:04. INDICATIONS : Chest pain. Rib fractures. MEDICAL HISTORY : Congestive heart failure. Arthritis. Thyroid disease. Afib. HTN. SURGICAL HISTORY : None. ENCOUNTER: Subsequent ACUITY: 4 - 6 days PAIN SCORE: 8/10 LOCATION: Bilateral chest FINDINGS: The heart size is enlarged. There is hazy density seen throughout the left chest. The right lung appe ars fairly clear. Left rib fractures are present. CONCLUSION: Hazy density seen over the left chest likely from effusion. Henrique Rodgers MD on March 01, 2017 at 6:37 Board Certified Radiologist. This report was verified electronically.
[2017-03-01] MEDS: RESP: ALBUTEROL 2.5 MG/IPRATROPIUM 0.5 MG NEB (SCH) NEB ×4 (08:45→20:08)
[2017-03-01] MEDS: MAGNESIUM HYDROXIDE SUSP 30 ML CUP PO SCH ×2 (09:14→21:00)
[2017-03-01] MEDS: POLYETHYLENE GLYCOL 17 GM PKG PO SCH (09:14)
[2017-03-01] MEDS: DOCUSATE SODIUM 50 MG/SENNA 8.6 MG TAB PO SCH ×2 (09:15→21:00)
[2017-03-01] MEDS: FUROSEMIDE 80 MG TAB PO SCH ×2 (09:15→21:00)
[2017-03-01] MEDS: LACTULOSE SYRUP 20 GM/30 ML CUP PO SCH (09:15)
[2017-03-01] MEDS: SERTRALINE HCL 50 MG TAB PO SCH (09:15)
[2017-03-01] MEDS: MORPHINE SULFATE 60 MG CONTROLLED RELEASE TAB PO SCH ×2 (09:16→21:40)
[2017-03-01] MEDS: MEMANTINE HCL 10 MG TAB PO SCH (09:16)
[2017-03-01] MEDS: POTASSIUM CHLORIDE 10 MEQ CONTROLLED RELEASE TAB PO SCH (09:17)
[2017-03-01] MEDS: LIDOCAINE HCL 5% PATCH T-DERMAL SCH (09:18)
--- NOTE | 2017-03-01 09:52 | HHI.PR ---
Subjective Subjective Notes PTD: 4 Patient OOB and sitting in a chair. Patient states, "I'm having a world of problems with my left chest." "I know there are some kooky people out there who say they are on a lot of medication, but I am. I have chronic pain." Objective Vitals/I&O Vital Signs Date Time Temp Pulse Resp B/P (MAP) Pulse Ox O2 Delivery O2 Flow Rate FiO2 03/01/17 08:46 94 21 03/01/17 08:00 96.2 77 16 96/67 (77) 02/25/17 23:09 Room Air Labs Laboratory Tests Test 03/01/17 04:33 White Blood Count 11.3 Red Blood Count 4.34 Hemoglobin 13.0 Hematocrit 38.5 Mean Corpuscular Volume 88.7 Mean Corpuscular Hemoglobin 29.8 Mean Corpuscular Hemoglobin Concent 33.6 Red Cell Distribution Width 13.8 Platelet Count 185 Mean Platelet Volume 8.5 Neutrophils (%) (Auto) 71.6 Lymphocytes (%) (Auto) 12.5 Monocytes (%) (Auto) 14.6 Eosinophils (%) (Auto) 1.0 Basophils (%) (Auto) 0.3 Neutrophils # (Auto) 8.1 Lymphocytes # (Auto) 1.4 Monocytes # (Auto) 1.6 Eosinophils # (Auto) 0.1 Basophils # (Auto) 0.0 CBC Comment DIFF FINAL Differential Comment Blood Urea Nitrogen 19 Creatinine 0.87 Random Glucose 102 Total Protein 5.9 Albumin 2.7 Calcium Level 8.0 Alkaline Phosphatase 96 Aspartate Amino Transf (AST/SGOT) 21 Alanine Aminotransferase (ALT/SGPT) 19 Total Bilirubin 1.3 Sodium Level 136 Potassium Level 4.0 Chloride Level 100 Carbon Dioxide Level 30.9 Anion Gap 5 Estimat Glomerular Filtration Rate 87 Radiology Last 48 hours Impressions Chest X-Ray 03/01/17 0600 Signed Impressions: Service Date/Time: February 05:59 - CONCLUSION: Hazy density seen over the left chest likely from effusion. Henrique Rodgers MD Chest X-Ray 02/28/17 0600 Signed Impressions: Service Date/Time: Tuesday, February 28, 2017 05:04 - CONCLUSION: Left rib fractures. Henrique Rodgers MD Narrative Exam GENERAL: This is a 66-year-old male OOB sitting in a recliner chair. No distress noted. SKIN: Warm and dry. HEAD: Atraumatic. Normocephalic. EYES: PERRLA ENT: No nasal bleeding or discharge. Mucous membranes pink and moist. NECK: Trachea midline. No JVD. CARDIOVASCULAR: Regular rate and rhythm. RESPIRATORY: No accessory muscle use. Lungs are clear to auscultation. Breath sounds equal bilaterally. No distress or dyspnea. GASTROINTESTINAL: BS + x 4 quads. Abdomen obese, soft, non-tender, nondistended. MUSCULOSKELETAL: Extremities without cyanosis, or edema. + peripheral pulses x 4 extremities. Warm with good capillary refill and sensation. MAEW. NEUROLOGICAL: Awake and alert. Normal speech and pattern. A/P Problem List: (1) Rib fractures ICD Codes: S22.39XA - Fracture of one rib, unspecified side, initial encounter for closed fracture Status: Acute (2) Fall ICD Codes: W19.XXXA - Unspecified fall, initial encounter Status: Acute (3) Intractable pain ICD Codes: R52 - Pain, unspecified Status: Acute Assessment and Plan [place]: This is a 66-year-old female who sustained a fall. He fell from the standing position, while wearing new orthopedic shoes. No LOC. He is on Coumadin for A. fib. Transfer from [facility] for trauma services. INJURIES: LEFT rib fxs (4-7) LEFT pulmonary contusion PMHx: Chronic pain. Afib on Coumadin, Arthritis, Anxiety, depression, CHF, dementia, gout, HTN, sleep apnea, thyroid dx Procedures: Consults: Cardiology. Case management. Diet: Regular heart healthy diet. Tolerating po diet. Encourage good po intake with each meal. Pulmonary: Encourage good pulmonary toileting. IS and acapella at bedside and pt encouraged to use. Rationale for use explained to patient, and verbalized understanding. EZ pap w/ nebs. A.m. chest x-ray shows hazy density to LEFT chest. CT chest ordered. F/u labs and CXR in am. PAIN Management: Morphine ER 60mg (home med), Oxycodone 10mg q 4h (home med), Robaxin 750mg q 8h, Lidoderm patch, PRN IV Morphine, Fentanyl patch 75mcg . OFIRMEV q 6h for 24 hrs - completed today. Toradol 15 mg q 6 h for pain control. Pt very difficult to manage as he has chronic pain and is on narcotics daily at home. Anxiety: Xanax 1 mg q 8h (home dose) Activity: OOB. PT intensified to BID ordered to promote progress. GI prophylaxis: Protonix po Bowel regimen: Isabel-colace, MOM. Miralax. Lactulose. LBM: 03/01 DVT prophylaxis: Mechanical VTE with SCDs. Chemical management with Coumadin 5 mg QD. DC Planning: Case management consulted for assistance with final discharge disposition. PT recommends [facility]. [id number] completed. Pt is still extremely painful and requiring 2 person assist for activity. Investigating the possibility of a short term rehab. Portal placed to [facility]. Emotional support provided to patient at bedside and plan of care discussed. Discussed with RN at bedside. Discussed pt condition and plan of care with collaborating trauma surgeon. Patient is hemodynamically stable and being managed on the med/surg floor. The trauma team will round each day, and evaluate plan of care on a daily basis. LEFT rib fxs LEFT pulmonary contusion Supportive care O2 as needed Pain control - increased fentanyl patch Aggressive pulmonary toileting OOB PT and OT ordered CXR today shows hazy density to the left chest. CT chest ordered today F/u labs and CXR in the am Sleep apnea Continue home CPAP Fall, Afib hx Cardiology consulted, patient sees Dr Jain Resumed home Coumadin dose INR 2.5 on admission INR = 1.5 US carotids- negative for stenosis HR elevated yesterday up to 130 - Afib - chronic. Lopressor 25 mg decreased to BID for rate control. (HR better controlled, BP low - with decrease frequency) Monitor closely Home medications resumed LEFT shoulder pain Xray- negative for fracture Problem Qualifiers (1) Rib fractures: Qualified Codes: S22.42XD - Multiple fractures of ribs, left side, subsequent encounter for fracture with routine healing (2) Fall: Qualified Codes: W19.XXXD - Unspecified fall, subsequent encounter Josephine Menjivar Mar 01, 2017 09:52
[2017-03-01] MEDS ORDERED: IOHEXOL 350 MG/ML 10 ML VIAL (for RAD DIAG) IVCONTRAST ONE (16:20)
--- NOTE | 2017-03-01 16:37 | RADRPT ---
EXAM DATE/TIME: 03/01/2017 15:50 [facility] COMPARISON: No previous studies available for comparison. INDICATIONS : Left side rib fractures. IV CONTRAST: 71 cc Omnipaque 350 (iohexol) IV RADIATION DOSE: 9.59 CTDIvol (mGy) MEDICAL HISTORY : Cardiovascular disease. Hypertension. Dementia. SURGICAL HISTORY : None. ENCOUNTER: Initial ACUITY: 4 - 6 days PAIN SCALE: 8/10 LOCATION: Left chest TECHNIQUE: Volumetric scanning of the chest was performed. Using automated exposure control and adjustment of t he mA and/or kV according to patient size, radiation dose was kept as low as reasonably achievable to obtain optimal diagnostic quality images. DICOM format image data is available electronically for review and comparison. Follow-up recommendations for detected pulmonary nodules are based at a minimum on nodule size and pa tient risk factors according to Fleischner Society Guidelines. FINDINGS: LUNGS: There is no consolidation or pneumothorax. No concerning pulmonary nodule is visualized. There is pa ssive atelectasis involving the dependent portion of the left lower lobe secondary to the small effus ion. PLEURA: There is a small left effusion. Volume is calculated at less than 200 cc. Counseled units are 23. No effusion on the right. MEDIASTINUM: The heart is at the upper limits of normal in terms of size. Coronary artery atherosclerotic calcific ations noted. Aorta and pulmonary arteries are normal in caliber. No adenopathy. No pericardial effus ion. AXILLAE: Within normal limits. No lymphadenopathy. SKELETAL: Acute left fourth through seventh rib fractures posteriorly. There is an anterior component of the le ft fourth rib fracture. No significant overlap. MISCELLANEOUS: The visualized upper abdominal organs demonstrate no acute abnormality. CONCLUSION: 1. Small effusion on the left with volume calculated at less than 200 mL. Effusion is too small for C T-guided chest tube placement. Effusion is also measuring simple fluid. 2. Left-sided fourth through seventh rib fractures. No pneumothorax. 3. Mucous involving the bronchus intermedius on the right. There is no collapse of the lower lobe. Daniel Reis Jr., MD on March 01, 2017 at 16:22 Board Certified Radiologist. This report was verified electronically.
[2017-03-01] MEDS: WARFARIN SOD 5 MG TAB PO SCH (17:06)
[2017-03-01] MEDS: DONEPEZIL HCL 5 MG TAB PO SCH (21:39)
[2017-03-01] MEDS: traZODone HCL 100 MG TAB PO SCH (21:40)
[2017-03-01] MEDS: REMOVE OLD LIDOCAINE PATCH T-DERMAL SCH (21:48)
[2017-03-02] VITALS: BP 142/84; PULSE 80; RESP 18; TEMP 97.4; O2SAT 95
[2017-03-02] MEDS: KETOROLAC TROMETHAMINE 30 MG/ML (IVP) VIAL IV PUSH SCH ×5 (00:36→23:13)
[2017-03-02 04:00] VITALS: BP 118/73; PULSE 72; RESP 18; TEMP 95.8; O2SAT 95
[2017-03-02 04:04] LABS: AUTOMATED NEUTROPHIL # 6.6 TH/MM3 (1.8-7.7); BASOPHIL % 0.4 % (0.0-2.0); EOSINOPHIL # 0.4 TH/MM3 (0-0.4); EOSINOPHIL % 4.2 % (0.0-4.0); HEMATOCRIT 37.7 % (39.0-51.0); HEMO FLAGS DIFF FINAL; LYMPHOCYTE # 1.4 TH/MM3 (1.0-4.8); MEAN CELL VOLUME 89.1 FL (80.0-100.0); MEAN CORPUSCULAR HEMOGLOBIN 29.5 PG (27.0-34.0); MEAN CORPUSCULAR HGB CONC 33.1 % (32.0-36.0); MONO % 11.8 % (0.0-8.0); NEUT % 68.6 % (16.0-70.0); PLATELET COUNT 179 TH/MM3 (150-450); RED BLOOD COUNT 4.24 MIL/MM3 (4.50-5.90); RED CELL DISTRIBUTION WIDTH 13.7 % (11.6-17.2); WHITE BLOOD COUNT 9.5 TH/MM3 (4.0-11.0)
[2017-03-02 04:26] LABS: BICARBONATE 33.4 MEQ/L (21.0-32.0); POTASSIUM 4.5 MEQ/L (3.5-5.1)
[2017-03-02] MEDS: LEVOTHYROXINE SODIUM 100 MCG TAB PO SCH (05:49)
[2017-03-02] MEDS: METHOCARBAMOL 500 MG TAB PO SCH ×3 (05:49→21:26)
--- NOTE | 2017-03-02 07:30 | RADRPT ---
EXAM DATE/TIME: 03/02/2017 06:30 [facility] COMPARISON: CT THORAX W CONTRAST, March 01, 2017, 15:50. CHEST SINGLE AP, March 01, 2017, 5:59. INDICATIONS : Left sided rib fractures. Shortness of breath MEDICAL HISTORY : None. SURGICAL HISTORY : None. ENCOUNTER: Subsequent ACUITY: 2 days PAIN SCORE: 0/10 LOCATION: Bilateral chest FINDINGS: 2 AP views of the chest demonstrate a normal-sized cardiac silhouette. Lungs are underinflated. There is improved aeration at the left lung base likely some residual atelectasis. No pneumothorax is iden tified. Bones and soft tissues have a stable appearance with multiple displaced left rib fractures. CONCLUSION: 1. Improved aeration at the left lung base. There is atelectasis but the pleural effusion is not defi nitively seen. 2. Multiple stable displaced left rib fractures. No pneumothorax is visualized. Henrique Laurent MD on March 02, 2017 at 7:27 Board Certified Radiologist. This report was verified electronically.
[2017-03-02 08:00] VITALS: BP 123/88; PULSE 87; RESP 18; TEMP 97.2; O2SAT 98
[2017-03-02] MEDS: DOCUSATE SODIUM 50 MG/SENNA 8.6 MG TAB PO SCH ×2 (09:00→21:00)
[2017-03-02] MEDS: MAGNESIUM HYDROXIDE SUSP 30 ML CUP PO SCH ×2 (09:00→21:00)
[2017-03-02] MEDS: MEMANTINE HCL 10 MG TAB PO SCH (09:00)
[2017-03-02] MEDS: FUROSEMIDE 80 MG TAB PO SCH ×2 (09:00→21:00)
[2017-03-02] MEDS: LACTULOSE SYRUP 20 GM/30 ML CUP PO SCH (09:00)
[2017-03-02] MEDS: POTASSIUM CHLORIDE 10 MEQ CONTROLLED RELEASE TAB PO SCH (09:00)
[2017-03-02] MEDS: MORPHINE SULFATE 60 MG CONTROLLED RELEASE TAB PO SCH ×2 (09:01→21:26)
[2017-03-02] MEDS: SERTRALINE HCL 50 MG TAB PO SCH (09:01)
[2017-03-02] MEDS: METOPROLOL TARTRATE 25 MG TAB PO SCH ×2 (09:01→21:27)
[2017-03-02] MEDS: LIDOCAINE HCL 5% PATCH T-DERMAL SCH (09:06)
[2017-03-02] MEDS: RESP: ALBUTEROL 2.5 MG/IPRATROPIUM 0.5 MG NEB (SCH) NEB (09:18)
[2017-03-02 12:00] VITALS: BP 131/78; PULSE 71; RESP 18; TEMP 98.4; O2SAT 95
--- NOTE | 2017-03-02 12:05 | HHI.PR ---
Subjective Subjective Notes PTD: 5 Patient OOB and sitting in a recliner chair. Patient states, "I feel 100% better today. I'm ready to go home. But not today - I'm not ready today." Patient states his is obtaining needed DME for at home. "I have to be home for [place]." Patient states, "I'm stubborn. I'm already on oxycodone and morphine at home. My pain tolerance is high. My pain was a 15/10. My every day pain level is a 7 /10. Now that U fixed all my pain medications, I feel great." "The nurse's entertain me here. They are fabulous." Objective Vitals/I&O Vital Signs Date Time Temp Pulse Resp B/P (MAP) Pulse Ox O2 Delivery O2 Flow Rate FiO2 03/02/17 08:00 97.2 87 18 123/88 (100) 98 03/01/17 20:12 21 03/01/17 09:47 Room Air Labs Laboratory Tests Test 03/02/17 03:22 White Blood Count 9.5 Red Blood Count 4.24 Hemoglobin 12.5 Hematocrit 37.7 Mean Corpuscular Volume 89.1 Mean Corpuscular Hemoglobin 29.5 Mean Corpuscular Hemoglobin Concent 33.1 Red Cell Distribution Width 13.7 Platelet Count 179 Mean Platelet Volume 8.6 Neutrophils (%) (Auto) 68.6 Lymphocytes (%) (Auto) 15.0 Monocytes (%) (Auto) 11.8 Eosinophils (%) (Auto) 4.2 Basophils (%) (Auto) 0.4 Neutrophils # (Auto) 6.6 Lymphocytes # (Auto) 1.4 Monocytes # (Auto) 1.1 Eosinophils # (Auto) 0.4 Basophils # (Auto) 0.0 CBC Comment DIFF FINAL Differential Comment Blood Urea Nitrogen 25 Creatinine 0.90 Random Glucose 97 Calcium Level 8.0 Sodium Level 138 Potassium Level 4.5 Chloride Level 99 Carbon Dioxide Level 33.4 Anion Gap 6 Estimat Glomerular Filtration Rate 84 Radiology Last 48 hours Impressions Chest X-Ray 03/02/17 0600 Signed Impressions: Service Date/Time: Thursday, March 02, 2017 06:30 - CONCLUSION: 1. Improved aeration at the left lung base. There is atelectasis but the pleural effusion is not definitively seen. 2. Multiple stable displaced left rib fractures. No pneumothorax is visualized. Henrique Laurent MD Chest X-Ray 03/01/17 0600 Signed Impressions: Service Date/Time: February 05:59 - CONCLUSION: Hazy density seen over the left chest likely from effusion. Henrique Rodgers MD Chest CT 03/01/17 0000 Signed Impressions: Service Date/Time: February 15:50 - CONCLUSION: 1. Small effusion on the left with volume calculated at less than 200 mL. Effusion is too small for CT-guided chest tube placement. Effusion is also measuring simple fluid. 2. Left-sided fourth through seventh rib fractures. No pneumothorax. 3. Mucous involving the bronchus intermedius on the right. There is no collapse of the lower lobe. Daniel Reis Jr., MD Narrative Exam GENERAL: This is a 66-year-old male OOB sitting in a recliner chair. No distress noted. SKIN: Warm and dry. HEAD: Atraumatic. Normocephalic. EYES: PERRLA ENT: No nasal bleeding or discharge. Mucous membranes pink and moist. NECK: Trachea midline. No JVD. CARDIOVASCULAR: Regular rate and rhythm. RESPIRATORY: No accessory muscle use. Lungs are clear to auscultation. Breath sounds equal bilaterally. No distress or dyspnea. GASTROINTESTINAL: BS + x 4 quads. Abdomen obese, soft, non-tender, nondistended. MUSCULOSKELETAL: Extremities without cyanosis, or edema. + peripheral pulses x 4 extremities. Warm with good capillary refill and sensation. MAEW. NEUROLOGICAL: Awake and alert. Normal speech and pattern. A/P Problem List: (1) Rib fractures ICD Codes: S22.39XA - Fracture of one rib, unspecified side, initial encounter for closed fracture Status: Acute (2) Fall ICD Codes: W19.XXXA - Unspecified fall, initial encounter Status: Acute (3) Intractable pain ICD Codes: R52 - Pain, unspecified Status: Acute Assessment and Plan [place]: This is a 66-year-old female who sustained a fall. He fell from the standing position, while wearing new orthopedic shoes. No LOC. He is on Coumadin for A. fib. Transfer [facility] for trauma services. INJURIES: LEFT rib fxs (4-7) LEFT pulmonary contusion PMHx: Chronic pain. Afib on Coumadin, Arthritis, Anxiety, depression, CHF, dementia, gout, HTN, sleep apnea, thyroid dx Procedures: Consults: Cardiology. Case management. Diet: Regular heart healthy diet. Tolerating po diet. Encourage good po intake with each meal. Pulmonary: Encourage good pulmonary toileting. IS and acapella at bedside and pt encouraged to use. Rationale for use explained to patient, and verbalized understanding. EZ pap w/ nebs. Yesterday's CT chest showed small left effusion. Less than 200 mL's which was too small for a Chest tube. Follow-up labs in the morning PAIN Management: Morphine ER 60mg (home med), Oxycodone 10mg q 4h (home med), Robaxin 750mg q 8h, Lidoderm patch, PRN IV Morphine, Fentanyl patch 75mcg . Toradol 15 mg q 6 h for pain control. Pt is finally managed well and comfortable. Anxiety: Xanax 1 mg q 8h (home dose) Activity: OOB. PT intensified to BID to promote progress. GI prophylaxis: Protonix po Bowel regimen: Isabel-colace, MOM. Miralax. Lactulose. LBM: 03/02. DVT prophylaxis: Mechanical VTE with SCDs. Chemical management with Coumadin 5 mg QD. DC Planning: Case management consulted for assistance with final discharge disposition. PT recommends [facility]. [id number] completed. Patient has progressed tremendously in the past 2 days. He does not want to go to a [facility]. He would like to go home. He states his is obtaining needed DME for home. Emotional support provided to patient at bedside and plan of care discussed. Discussed with RN at bedside. Discussed pt condition and plan of care with collaborating trauma surgeon. Patient is hemodynamically stable and being managed on the med/surg floor. The trauma team will round each day, and evaluate plan of care on a daily basis. LEFT rib fxs LEFT pulmonary contusion Supportive care O2 as needed Pain control - increased fentanyl patch Aggressive pulmonary toileting OOB PT and OT ordered CT chest yesterday with small left effusion, too small for chest tube F/u labs and CXR in the am Sleep apnea Continue home CPAP Fall, Afib hx Cardiology consulted, patient sees Dr Jain Resumed home Coumadin dose INR 2.5 on admission INR = 1.5 Follow-up labs in the morning US carotids- negative for stenosis HR elevated yesterday up to 130 - Afib - chronic. Lopressor 25 mg decreased to BID for rate control. (HR better controlled, BP low - with decrease frequency) Monitor closely Home medications resumed LEFT shoulder pain Xray- negative for fracture Attending Statement s/p chest wall injury no acute events overnight pain mostly controlled on oral meds today vitals stable exam: awake and alert, breathing stable, bilateral breath sounds, abdomen soft, nttp continue pain control and pulmonary toilet, continue working with PT and walker , very close to going home The exam, history, and the medical decision-making described in the above note were completed with the assistance of the mid-level provider. I reviewed and agree with the findings presented. I attest that I had a [id number] encounter with the patient on the same day, and personally performed and documented my assessment and findings in the medical record. Problem Qualifiers (1) Rib fractures: Qualified Codes: S22.42XD - Multiple fractures of ribs, left side, subsequent encounter for fracture with routine healing (2) Fall: Qualified Codes: W19.XXXD - Unspecified fall, subsequent encounter Josephine Menjivar Mar 02, 2017 12:05 Fran Salas MD Mar 04, 2017 08:30
[2017-03-02] MEDS ORDERED: METO25TA3 PO (14:26)
[2017-03-02] MEDS ORDERED: IBUP1TAB7 PO (14:26)
[2017-03-02] MEDS ORDERED: METH500T3 PO (14:26)
[2017-03-02 16:00] VITALS: BP 116/72; PULSE 68; RESP 18; TEMP 97; O2SAT 96
[2017-03-02] MEDS: WARFARIN SOD 5 MG TAB PO SCH (17:21)
[2017-03-02 20:00] VITALS: BP 129/77; PULSE 84; RESP 20; TEMP 97.3; O2SAT 97
[2017-03-02] MEDS: traZODone HCL 100 MG TAB PO SCH (21:26)
[2017-03-02] MEDS: DONEPEZIL HCL 5 MG TAB PO SCH (21:27)
[2017-03-02] MEDS: REMOVE OLD LIDOCAINE PATCH T-DERMAL SCH (21:31)
[2017-03-03] VITALS: BP 130/93; PULSE 87; RESP 20; TEMP 97.8; O2SAT 94
[2017-03-03 04:00] VITALS: BP 141/90; PULSE 62; RESP 20; TEMP 96.7; O2SAT 97
[2017-03-03 05:25] LABS: AUTOMATED NEUTROPHIL # 4.6 TH/MM3 (1.8-7.7); BASOPHIL % 0.3 % (0.0-2.0); EOSINOPHIL # 0.4 TH/MM3 (0-0.4); EOSINOPHIL % 6.1 % (0.0-4.0); HEMATOCRIT 35.5 % (39.0-51.0); HEMO FLAGS DIFF FINAL; LYMPH % 17.7 % (9.0-44.0); LYMPHOCYTE # 1.2 TH/MM3 (1.0-4.8); MEAN CELL VOLUME 88.4 FL (80.0-100.0); MEAN CORPUSCULAR HEMOGLOBIN 30.2 PG (27.0-34.0); MEAN CORPUSCULAR HGB CONC 34.2 % (32.0-36.0); MONO % 10.8 % (0.0-8.0); NEUT % 65.1 % (16.0-70.0); PLATELET COUNT 210 TH/MM3 (150-450); RED BLOOD COUNT 4.01 MIL/MM3 (4.50-5.90); RED CELL DISTRIBUTION WIDTH 13.4 % (11.6-17.2)
[2017-03-03 05:27] LABS: INTERNATIONAL NORMALIZED RATIO 1.8 RATIO; PROTHROMBIN TIME - PATIENT 18.2 SEC (9.8-11.6)
[2017-03-03] MEDS: LEVOTHYROXINE SODIUM 100 MCG TAB PO SCH (06:15)
[2017-03-03] MEDS: KETOROLAC TROMETHAMINE 30 MG/ML (IVP) VIAL IV PUSH SCH ×2 (06:15→11:10)
[2017-03-03] MEDS: METHOCARBAMOL 500 MG TAB PO SCH (06:16)
--- NOTE | 2017-03-03 06:39 | RADRPT ---
EXAM DATE/TIME: 03/03/2017 05:51 [facility] COMPARISON: CHEST SINGLE AP, March 02, 2017, 6:30. INDICATIONS : Follow up trauma. Rib fractures. Pneumothorax. MEDICAL HISTORY : None. SURGICAL HISTORY : None. ENCOUNTER: Subsequent ACUITY: 4 - 6 days PAIN SCORE: 8/10 LOCATION: Bilateral chest FINDINGS: There is increasing opacity of the left chest which may be subpleural hematoma or lung contusion. Rig ht lung is grossly clear. Cardiac contours are stable with borderline heart size. Posterior left rib fractures again noted. CONCLUSION: Worsening aeration on the left. Henrique Isabel MD on March 03, 2017 at 6:36 Board Certified Radiologist. This report was verified electronically.
[2017-03-03] MEDS ORDERED: WALKER WHEELS/F1 MIS (07:54)
[2017-03-03] MEDS ORDERED: ADJUSTABLE COMM1 MIS (07:54)
[2017-03-03 08:00] VITALS: BP 121/83; PULSE 75; RESP 18; TEMP 96.8; O2SAT 95
[2017-03-03] MEDS: MAGNESIUM HYDROXIDE SUSP 30 ML CUP PO SCH (08:13)
[2017-03-03] MEDS: POLYETHYLENE GLYCOL 17 GM PKG PO SCH (08:14)
[2017-03-03] MEDS: MEMANTINE HCL 10 MG TAB PO SCH (08:14)
[2017-03-03] MEDS: LACTULOSE SYRUP 20 GM/30 ML CUP PO SCH (08:14)
[2017-03-03] MEDS: SERTRALINE HCL 50 MG TAB PO SCH (08:15)
[2017-03-03] MEDS: METOPROLOL TARTRATE 25 MG TAB PO SCH (08:15)
[2017-03-03] MEDS: DOCUSATE SODIUM 50 MG/SENNA 8.6 MG TAB PO SCH (08:15)
[2017-03-03] MEDS: FUROSEMIDE 80 MG TAB PO SCH (08:16)
[2017-03-03] MEDS: MORPHINE SULFATE 60 MG CONTROLLED RELEASE TAB PO SCH (08:16)
[2017-03-03] MEDS: POTASSIUM CHLORIDE 10 MEQ CONTROLLED RELEASE TAB PO SCH (08:17)
[2017-03-03] MEDS: LIDOCAINE HCL 5% PATCH T-DERMAL SCH (08:18)
[2017-03-03 12:00] VITALS: BP 107/66; PULSE 68; RESP 18; TEMP 97.7; O2SAT 96
--- NOTE | 2017-03-03 13:57 | HHI.DS ---
Discharge Summary Admission Date Feb 25, 2017 at 19:00 Discharge Date: Mar 03, 2017 Admitting Diagnosis RIB FRACTURES/INTRACTABLE PAIN (1) Rib fractures ICD Codes: S22.39XA - Fracture of one rib, unspecified side, initial encounter for closed fracture Diagnosis: Principal Status: Acute (2) Fall ICD Codes: W19.XXXA - Unspecified fall, initial encounter Diagnosis: Principal Status: Acute (3) Intractable pain ICD Codes: R52 - Pain, unspecified Diagnosis: Principal Status: Acute Brief History Fall. CBC/BMP: 03/03/17 0423 03/02/17 0322 Significant Findings Laboratory Tests Test 03/01/17 04:33 03/02/17 03:22 03/03/17 04:23 White Blood Count 11.3 TH/MM3 (4.0-11.0) Red Blood Count 4.34 MIL/MM3 (4.50-5.90) 4.24 MIL/MM3 (4.50-5.90) 4.01 MIL/MM3 (4.50-5.90) Hematocrit 38.5 % (39.0-51.0) 37.7 % (39.0-51.0) 35.5 % (39.0-51.0) Neutrophils (%) (Auto) 71.6 % (16.0-70.0) Monocytes (%) (Auto) 14.6 % (0.0-8.0) 11.8 % (0.0-8.0) 10.8 % (0.0-8.0) Neutrophils # (Auto) 8.1 TH/MM3 (1.8-7.7) Monocytes # (Auto) 1.6 TH/MM3 (0-0.9) 1.1 TH/MM3 (0-0.9) Blood Urea Nitrogen 19 MG/DL (7-18) 25 MG/DL (7-18) Total Protein 5.9 GM/DL (6.4-8.2) Albumin 2.7 GM/DL (3.4-5.0) Calcium Level 8.0 MG/DL (8.5-10.1) 8.0 MG/DL (8.5-10.1) Total Bilirubin 1.3 MG/DL (0.2-1.0) Estimat Glomerular Filtration Rate 87 ML/MIN (>89) 84 ML/MIN (>89) Hemoglobin 12.5 GM/DL (13.0-17.0) 12.1 GM/DL (13.0-17.0) Eosinophils (%) (Auto) 4.2 % (0.0-4.0) 6.1 % (0.0-4.0) Carbon Dioxide Level 33.4 MEQ/L (21.0-32.0) Prothrombin Time 18.2 SEC (9.8-11.6) Imaging Last Impressions Chest X-Ray 03/03/17 0600 Signed Impressions: Service Date/Time: Friday, March 03, 2017 05:51 - CONCLUSION: Worsening aeration on the left. Henrique Isabel MD Chest CT 03/01/17 0000 Signed Impressions: Service Date/Time: February 15:50 - CONCLUSION: 1. Small effusion on the left with volume calculated at less than 200 mL. Effusion is too small for CT-guided chest tube placement. Effusion is also measuring simple fluid. 2. Left-sided fourth through seventh rib fractures. No pneumothorax. 3. Mucous involving the bronchus intermedius on the right. There is no collapse of the lower lobe. Daniel Reis Jr., MD Shoulder X-Ray 02/27/17 0000 Signed Impressions: Service Date/Time: Monday, February 27, 2017 15:40 - CONCLUSION: Unremarkable limited examination of the left shoulder however there are least 2 left-sided rib fractures. Sami Mohan MD Carotid Artery Ultrasound 02/26/17 0000 Signed Impressions: Service Date/Time: Sunday, February 26, 2017 18:27 - CONCLUSION: Normal hemodynamic profile both carotids. Daniel Sen MD PE at Discharge GENERAL: This is a 66-year-old male OOB sitting in a recliner chair. No distress noted. SKIN: Warm and dry. HEAD: Atraumatic. Normocephalic. EYES: PERRLA ENT: No nasal bleeding or discharge. Mucous membranes pink and moist. NECK: Trachea midline. No JVD. CARDIOVASCULAR: Regular rate and rhythm. RESPIRATORY: No accessory muscle use. Lungs are clear to auscultation. Breath sounds equal bilaterally. No distress or dyspnea. GASTROINTESTINAL: BS + x 4 quads. Abdomen obese, soft, non-tender, nondistended. MUSCULOSKELETAL: Extremities without cyanosis, or edema. + peripheral pulses x 4 extremities. Warm with good capillary refill and sensation. MAEW. NEUROLOGICAL: Awake and alert. Normal speech and pattern. Hospital Course [place]AM[place]: This is a 66-year-old female who sustained a fall. He fell from the standing position, while wearing new orthopedic shoes. No LOC. He is on Coumadin for A. fib. Transfer from [facility] for trauma services. INJURIES: LEFT rib fxs (4-7) LEFT pulmonary contusion PMHx: Chronic pain. Afib on Coumadin, Arthritis, Anxiety, depression, CHF, dementia, gout, HTN, sleep apnea, thyroid dx Procedures: Consults: Cardiology. Case management. Patient states he is feeling much better and would like to go home today The patient is now tolerating a po diet. Eating and drinking well. Pain is being managed well with PO pain medications. Patient will continue with home chronic pain medication regime. Added muscle relaxant Pt is having regular bowel movements, and have recommended to patient to continue with stool softeners while taking narcotic pain medications to prevent constipation. Pt has been participating in PT and OT while admitted at [place] and has been ambulating with their assistance and independently . Patient no longer wants to go to rehabilitation,. Home health care PT has been arranged. Obtaining DME for home use. Patient instructed to bring IS and acapella home with him and continue use at home. Patient is agreeable. All follow up appointments have been provided and discussed with the patient. It is recommended that the patient keeps all his follow up appointments for continued recovery. Patient's condition and plan of care discussed with collaborating trauma surgeon. He is agreeable to plan for discharge today. Therefore, the patient is stable to be safely discharged home with [facility] from a trauma surgery standpoint. Thank you for allowing us to participate in his care. We wish Ryder the best in his recovery. LEFT rib fxs LEFT pulmonary contusion Supportive care O2 as needed Pain control - increased fentanyl patch Aggressive pulmonary toileting OOB PT and OT ordered Lungs CTA Chest x-ray with continued haziness on the left, but stable Sleep apnea Continue home CPAP Fall, Afib hx Cardiology consulted, patient sees Dr Jain Resumed home Coumadin dose INR 2.5 on admission Repeat INR today = 1.8 Follow up Coumadin with Counselor Aide US carotids- negative for stenosis Lopressor 25 mg decreased to BID for rate control. Monitor closely Continue home medications LEFT shoulder pain Xray- negative for fracture Pt Condition on Discharge: Stable Discharge Disposition: Disch w/ Home Health Serv Discharge Instructions DIET: Follow Instructions for: Heart Healthy Diet Activities you can perform: Regular-No Restrictions Activities to Avoid: Driving for 24 hrs, Concussion Sports, Contact Sports, Lifting/Bending, Prolonged Standing Josephine Menjivar Mar 03, 2017 13:57
== END 2017-03-03 15:27 | disposition home health service (06) | DRG 184 ==
LOC: NEPE 17:59 → NEDA 19:00 → N06A 02-26 01:08
PROVIDERS: ADMIT Surgery; ATTEND Surgery
DX: S22.42XA Multiple fractures of ribs, left side, initial encounter for closed fracture (principal); S27.321A Contusion of lung, unilateral, initial encounter; I50.9 Heart failure, unspecified; I11.0 Hypertensive heart disease with heart failure; F03.90 Unspecified dementia, unspecified severity, without behavioral disturbance, psychotic disturbance, mood disturbance, and anxiety; Z68.42 Body mass index [BMI] 45.0-49.9, adult; I48.2 Chronic atrial fibrillation; M10.9 Gout, unspecified; E66.9 Obesity, unspecified; M25.512 Pain in left shoulder; G47.33 Obstructive sleep apnea (adult) (pediatric); H91.90 Unspecified hearing loss, unspecified ear; M19.90 Unspecified osteoarthritis, unspecified site; F32.9 Major depressive disorder, single episode, unspecified; F41.9 Anxiety disorder, unspecified; W01.0XXA Fall on same level from slipping, tripping and stumbling without subsequent striking against object, initial encounter; Z79.01 Long term (current) use of anticoagulants; Z88.5 Allergy status to narcotic agent
CPT/HCPCS: 71010; 71020; 71260; 73030; 80048; 80053; 85025; 85610; 85730; 93880; 94150; 94640; 94664; 94667; 94668; 99285; C9113; J0131; J1885; J2270; J2405; Q9967